=== PATIENT | male | born 1970 | race Caucasian/White ===

== ENCOUNTER 2021-10-11 12:11 | Inpatient (IN) | payer MEDICAID, SELFPAY ==
--- NOTE | ~2021-10-11 | CT_ITS ---
EXAMINATION: CT ABDOMEN AND PELVIS WITHOUT CONTRAST CLINICAL INFORMATION: Diffuse pain COMPARISON: Baseline including 06/24/2012 TECHNIQUE: Multidetector volumetric imaging was performed from the superior aspect of the liver through the pubic symphysis. Sagittal and coronal reformatted images were obtained on the technologist's workstation. This CT examination was performed using dose optimization techniques as appropriate, variously including the following: *Automated exposure control *Adjustment of mA and/or kV according to patient size (this includes techniques or standardized protocols for targeted exams where dose is matched to indication/reason for exam; i.e. extremities or head) *Use of iterative reconstruction technique DLP: 724 mGy-cm FINDINGS: LUNG BASES: The visualized lung bases are unremarkable. LIVER, GALLBLADDER, AND BILIARY TREE: Diffuse hepatic steatosis without any focal lesion. The gallbladder is unremarkable with no evidence of radiopaque gallstones, gallbladder wall thickening, or obvious pericholecystic inflammatory changes. No gross biliary ductal dilatation. PANCREAS: Unremarkable. SPLEEN: Unremarkable. ADRENAL GLANDS: Unremarkable. KIDNEYS AND URETERS: The kidneys are normal in size, shape, and attenuation. No hydronephrosis, hydroureter, or calculi seen. No perinephric stranding. BLADDER: Unremarkable. GASTROINTESTINAL TRACT: Nonspecific mildly prominent small bowel loops throughout the central abdomen. Distal small bowel loops appear relatively decompressed. Bowel loops measure up to 3 cm. Colon is decompressed and unremarkable relative transition zone within the upper pelvis. Appendix normal. ABDOMINAL WALL: No significant hernia is appreciated. LYMPH NODES: Normal. VASCULAR: Unremarkable. PELVIC VISCERA: Unremarkable. OSSEOUS STRUCTURES: Unremarkable. Extensive nonspecific subcutaneous infiltration of the buttock region. Correlate with patient history. Similar appearance is noted on baseline studies. CT/CT abdomen pelvis wo con IMPRESSION: Findings compatible with a partial small bowel obstruction of moderate severity with a transition zone within the mid ileum within the pelvis. Fleischner guidelines were followed.
[2021-10-11 12:20] VITALS: BP 122/72; BP 145/79; PULSE 80; PULSE 82; RESP 18; TEMP 36.9; O2SAT 95; O2SAT 97; BMI 28.4
--- NOTE | 2021-10-11 12:32 | ED.ABDPAIN ---
HPI - Abdominal Pain General Chief Complaint: Abdominal Pain Stated Complaint: abd pain Time Seen by Provider: 10/11/21 12:15 Source: patient Mode of arrival: EMS Limitations: language barrier History of Present Illness HPI narrative: 51-year-old Ethiopian-speaking male who lives in [place] presents today for abdominal pain. Patient states he has had this pain ongoing for the past 4 months, and he has been taking home remedies. He has not seen a provider for this pain. Three days ago the abdominal pain got worse, and is unbearable today. The pain is in the center of his abdomen and his lower abdomen. States he is also having diarrhea and vomiting. States he has had bilateral low back pain as well His last meal was last night. No prior history of abdominal surgeries. No testicular pain, penile discharge, dysuria, hematuria, fevers, chills, chest pain, shortness of breath. No dark, tarry, or bloody stool Patient has a primary care provider in [place], he is here visiting his mother. Past medical history includes fibromyalgia, HIV currently under treatment, hypertension Related Data Home Medications Medication Instructions Recorded Confirmed bictegravir 50 mg-emtricitabine 1 tab PO DAILY 10/11/21 200 mg-tenofovir alafenam 25 mg tablet (Biktarvy) cholecalciferol (vitamin D3) 1,250 1 cap PO QWEEK 10/11/21 mcg (50,000 unit) capsule esomeprazole magnesium 40 mg 1 cap PO DAILY 10/11/21 capsule,delayed release gabapentin 600 mg tablet 1 tab PO DAILY 10/11/21 gemfibrozil 600 mg tablet 1 tab PO BID 10/11/21 lisinopril 2.5 mg tablet 1 tab PO DAILY 10/11/21 Allergies Allergy/AdvReac Type Severity Reaction Status Date / Time No Known Allergies Allergy Unverified 02/01/20 17:21 Review of Systems Constitutional: Denies body ache(s), Denies chills, Denies fatigue, Denies fever(s), Denies headache(s), Denies malaise and Denies weakness Eyes: Denies diplopia Denies vertigo, Denies dizziness, Denies headache(s) and Denies throat swelling Cardiovascular: Denies chest pain, Denies syncope, Denies leg edema, Denies lightheadedness, Denies Loss of Consciousness, Denies palpitations and Denies dyspnea Respiratory: Denies chest congestion, Denies cough and Denies dyspnea Gastrointestinal: Reports abdominal pain, Denies hematochezia, Denies constipation, Reports diarrhea and Reports vomiting Genitourinary: Reports no additional male genitourinary complaints Musculoskeletal: Reports back pain Denies confusion, Denies vertigo, Denies dizziness, Denies syncope, Denies headache(s) and Denies weakness Psychiatric: Denies anxiety, Denies confusion and Denies depression Endocrine: Denies fatigue and Denies palpitations Allergic/Immunologic: Denies throat swelling PMFSH Social History Social History Advance Directives: No Advance Directives Information Provided: No Physical Exam ED Vital Signs: Vital Signs - 24 hr 10/11/21 12:20 Temperature 98.4 F Pulse Rate 82 Respiratory Rate 18 Blood Pressure 145/79 H Pulse Oximetry 95 BMI result Body Mass Index 28.4 Const General: No confusion Nutritional Appearance: well nourished Orientation/consciousness: No confusion Limitations: no limitations HENMT Head: Yes normal to inspection, Yes No palpable skull fracture present, Yes normocephalic and Yes atraumatic Ears: hearing grossly normal bilaterally General nose exam: Normal external nose present Face and sinus: Yes normal facial exam Mouth: Normal oral and palatal mucosa present Throat: Yes posterior oropharynx normal Eyes Conjunctivae: conjunctivae normal Pupils: Equal, round and reactive pupils present EOM: EOMs intact bilaterally Neck Neck: Yes full ROM, Yes no lymphadenopathy and Yes supple Resp Effort & Inspection: normal respiratory effort and able to speak in complete sentences Auscultation: clear to auscultation bilaterally, no crackles, no rales, no rhonchi and no wheezes Cardio Rate: regular rate Rhythm: regular rhythm Heart sounds: S1 normal heart sound present and S2 normal heart sound present GI Inspection: Yes obesity and Yes striae Palpation (GI): Soft to palpation, Tenderness to palpation present (GI) in the epigastrum, in the LLQ, in the RLQ and in the LUQ, Guarding due to palpation present (GI) (mildly diffusely) and not rigid Percussion: Yes tympanic to percussion Auscultation: normal bowel sounds Skin General skin exam: no rashes or lesions noted Neuro General: No confusion Cranial nerves: Yes Equal, round and reactive pupils present Extrem General: Yes normal to inspection and Yes full ROM Psych Appearance: grossly normal Affect: normal affect Attitude: cooperative Thought process: Normal thought process present Course Course Course Narrative: 51-year-old Ethiopian-speaking male with a past medical history of fibromyalgia, HIV, and hypertension presents for 4 months of abdominal pain that has worsened for the last 3 days and is much worse today. States the pain is in his entire abdomen, worse in the center of his abdomen and his lower abdomen. Endorses vomiting and diarrhea. On exam, patient is well appearing, with stable vitals. Abdomen is obese, patient is tender in all quadrants of abdomen, has bilateral low back pain, CVA tenderness bilaterally Will get labs, lipase, urine, will CT abdomen. Gave morphine, Zofran, fluids Reevaluation(s) Reevaluation #1: CT/CT abdomen pelvis wo con IMPRESSION: Findings compatible with a partial small bowel obstruction of moderate severity with a transition zone within the mid ileum within the pelvis. Labs are remarkable for blood glucose 149, total bili 1.2, ALT 41, and lipase is only 26. TT with general surgery, Dr Cruz, who will come by to evaluate patient Reevaluation #2: Dr Coates evaluated patient, and will admit patient to his service MDM - Abdominal Pain Lab Data Result diagrams: 10/11/21 12:59 10/11/21 12:59 Labs: Lab Results 10/11/21 10/11/21 Range/Units 12:59 12:59 WBC 8.6 (4.8-10.8) X10*3/uL RBC 5.48 (4.60-5.80) X10*6/uL Hgb 14.8 (14.0-18.0) g/dl Hct 44.1 (42.0-52.0) % MCV 80.5 (80.0-98.0) fL MCH 27.0 (27.0-33.0) pg MCHC 33.6 (31.0-36.0) g/dl RDW 12.8 (11.0-16.0) % Plt Count 232 (160-400) X10*3/uL MPV 9.4 (9.4-12.4) fL Immature Gran % (Auto) 0.1 (0.0-0.4) % Neut % (Auto) 77.1 H (45-73) % Lymph % (Auto) 15.5 L (20-40) % [place] % (Auto) 5.1 (2-11) % Eos % (Auto) 2.1 (0-4) % Baso % (Auto) 0.1 (0-2) % Lymph # (Auto) 1.3 (1.2-4.9) X10*3/uL [place] # (Auto) 0.4 (0.1-1.2) X10*3/uL Eos # (Auto) 0.2 (0.0-0.4) X10*3/uL Baso # (Auto) 0.0 (0.0-0.2) X10*3/uL Abs Immat Gran (auto) 0.01 (0.00-0.03) X10*3/uL Absolute Neuts (auto) 6.6 (2.0-8.3) x10*3/uL Absolute Nucleated RBC 0.000 (0.0-0.012) X10*3/uL Nucleated RBC % (auto) 0.0 (0.0-0.2) /100WBC Sodium 138 (135-145) mmol/L Potassium 4.2 (3.3-5.1) mmol/L Chloride 105 (96-108) mmol/L Carbon Dioxide 25 (22-29) mmol/L Anion Gap 12 (12-20) BUN 11 (9-16) mg/dL Creatinine 1.14 (0.5-1.4) mg/dL Estim Creat Clear Calc 91.1 Estimated GFR > 60 Random Glucose 149 H (60-115) mg/dL Calcium 9.2 (8.4-10.2) mg/dL Total Bilirubin 1.2 H (0.0-1.0) mg/dL AST 18 (5-37) U/L ALT 41 H (0-40) U/L Alkaline Phosphatase 66 (39-117) U/L Total Protein 6.7 (6.5-8.0) g/dL Albumin 3.8 (3.5-5.0) g/dL Lipase 26 (8-78) U/L ECG Data Interpretation: Sinus at a rate of 75, TX interval 152, QRS 74, QTC is not prolonged at 04:24, left-sided axis, no ST depressions or elevations, no T-wave abnormalities Discharge Plan Discharge Clinical Impression: Partial small bowel obstruction Patient Disposition: Admitted As Inpatient
--- NOTE | 2021-10-11 12:51 | ECG_ITS ---
Test Reason : ABDOMINAL PAIN Blood Pressure : / mmHG Vent. Rate : 075 BPM Atrial Rate : 075 BPM P-R Int : 152 ms QRS Dur : 074 ms QT Int : 380 ms P-R-T Axes : 022 005 016 degrees QTc Int : 424 ms Normal sinus rhythm Normal ECG When compared with ECG of 25-JUN-2012 03:45, No significant changes seen Referred By: Michelle Berger Electronically Signed By:Barak Saavedra
[2021-10-11 13:05] LABS: MANUAL DIFF FLAG NO
[2021-10-11 13:13] LABS: Basophils Percent Auto 0.1 % (0-2); Eosinophils Absolute Auto 0.2 X10*3/uL (0.0-0.4); Eosinophils Percent Auto 2.1 % (0-4); Hematocrit 44.1 % (42.0-52.0); Hemoglobin 14.8 g/dl (14.0-18.0); Imm Gran Abs Auto 0.01 X10*3/uL (0.00-0.03); Imm Gran Pct Auto 0.1 % (0.0-0.4); Lymphocytes Absolute Auto 1.3 X10*3/uL (1.2-4.9); Lymphocytes Percent Auto 15.5 % (20-40); Mean Corpuscular HGB Conc 33.6 g/dl (31.0-36.0); Mean Corpuscular Volume 80.5 fL (80.0-98.0); Mean Platelet Volume 9.4 fL (9.4-12.4); Monocytes Absolute Auto 0.4 X10*3/uL (0.1-1.2); Monocytes Percent Auto 5.1 % (2-11); Neutrophils Absolute Auto 6.6 x10*3/uL (2.0-8.3); Neutrophils Percent Auto 77.1 % (45-73); Platelet Count 232 X10*3/uL (160-400); Red Blood Count 5.48 X10*6/uL (4.60-5.80); Red Cell Distribution Width 12.8 % (11.0-16.0); White Blood Count 8.6 X10*3/uL (4.8-10.8)
[2021-10-11 13:24] LABS: Alanine Aminotransferase 41 U/L (0-40); Albumin Level 3.8 g/dL (3.5-5.0); Alkaline Phosphatase 66 U/L (39-117); Anion Gap 12 (12-20); Aspartate Amino Transferase 18 U/L (5-37); Bilirubin Total 1.2 mg/dL (0.0-1.0); Blood Urea Nitrogen 11 mg/dL (9-16); Calcium 9.2 mg/dL (8.4-10.2); Carbon Dioxide 25 mmol/L (22-29); Chloride 105 mmol/L (96-108); Creatinine Clr Calc Pharmacy 91.1; Estimated Glomerular Filt Rate > 60; Glucose Random 149 mg/dL (60-115); Lipase 26 U/L (8-78); Potassium 4.2 mmol/L (3.3-5.1); Sodium 138 mmol/L (135-145); Total Protein 6.7 g/dL (6.5-8.0)
[2021-10-11] MEDS: 0.9 % Sodium Chloride 1,000 ML 999 ML IV (13:40)
[2021-10-11] MEDS: ondansetron HCL 4 MG/2 ML VIAL IVPUSH (13:40)
[2021-10-11] MEDS: Morphine Sulfate 4 MG/ML CARTRIDGE IVPUSH (13:40)
[2021-10-11 15:05] LABS: COVID-19 Test Negative (Negative); IDNOW Serial# 16C4AD1C
--- NOTE | 2021-10-11 15:07 | P.HPGS_ITS ---
History of Present Illness History of Present Illness Date of Service: 10/17/21 Chief complaint: Abdominal Pain Possible PSBO Narrative: Steffen Franklin is a 51 year old male here in the ED for abdominal pain. He says that he has had abdominal pain for about 4 days now. He says this has persisted and he had nausea and episodes of vomitting last night and this morning. He also says he has had diarrhea for about 5 days. He describes having 5 bowel movements a day which have been watery He continues to have BMs and his last one was last night. He says he has been passing flatus. He denies nay previous abdominal surgeries. He has known HIV for many years. Review of Systems Constitutional: Constitutional: Denies chills and Denies fever(s) Cardiovascular: Cardiovascular: Denies chest pain, Denies dyspnea and Denies dyspnea on exertion Respiratory: Respiratory: Denies cough, Denies dyspnea and Denies dyspnea on exertion Gastrointestinal: Gastrointestinal: Denies hematochezia, Denies change in bowel habits and Reports diarrhea Genitourinary: Genitourinary: Denies hematuria and Denies difficulty urinating Musculoskeletal: Musculoskeletal: Denies back pain and Denies limited range of motion Neurologic: Denies focal weakness and Denies convulsions Psychiatric: Psychiatric: Denies depression and Denies mood swings PMFSH Past Medical History Medical History (Updated 10/11/21 @ 15:11 by Mukund Coates MD) Fibromyalgia GERD (gastroesophageal reflux disease) HIV (human immunodeficiency virus infection) Hyperlipidemia Hypertension Social History Social History Advance Directives Date on File: 10/12/21 service: No Current occupational status: unemployed Meds Allergies Allergy/AdvReac Type Severity Reaction Status Date / Time No Known Allergies Allergy Unverified 02/01/20 17:21 Active Medications: Current Medications Pharmacy Consult (Consult Rx Perform Med Rec) 1 each MISCELLANE ONCE PRN PRN Reason: Consult order Home Medications Medication Instructions Recorded Confirmed Last Taken Type amitriptyline 50 mg tablet 50 mg PO BEDTIME PRN 10/11/21 10/11/21 10/10/21 History bictegravir 50 mg-emtricitabine 1 tab PO DAILY 10/11/21 10/11/21 10/10/21 History 200 mg-tenofovir alafenam 25 mg tablet (Biktarvy) cholecalciferol (vitamin D3) 1,250 1 cap PO MO 10/11/21 10/11/21 Unknown History mcg (50,000 unit) capsule dicyclomine 20 mg tablet 20 mg PO TID 10/11/21 10/11/21 10/10/21 History esomeprazole magnesium 40 mg 1 cap PO DAILY 10/11/21 10/11/21 10/10/21 History capsule,delayed release gabapentin 600 mg tablet 1 tab PO DAILY 10/11/21 10/11/21 10/10/21 History gemfibrozil 600 mg tablet 1 tab PO BID 10/11/21 10/11/21 10/10/21 History lisinopril 2.5 mg tablet 1 tab PO DAILY 10/11/21 10/11/21 10/10/21 History rosuvastatin 10 mg tablet 10 mg PO DAILY 10/11/21 10/11/21 10/10/21 History Physical Exam Vital Signs: Vital Signs: Last Vital Signs Temp 98.4 F 10/11/21 12:20 Pulse 82 10/11/21 12:20 Resp 18 10/11/21 12:20 BP 145/79 H 10/11/21 12:20 Pulse Ox 95 10/11/21 12:20 BMI result Body Mass Index 28.4 Const: General: comfortable and no acute distress Orientation/consciousness: patient oriented x3 Neck: Neck: Yes no lymphadenopathy Resp: Auscultation: clear to auscultation bilaterally Cardio: Rhythm: regular rhythm GI: Other: mild diffuse tenderness, no palpable masses, no hernia, no guarding or rebound Palpation (GI): Soft to palpation and no guarding Neuro: General: patient oriented x3 Results Results Labs: Short CBC 10/11/21 Range/Units 12:59 WBC 8.6 (4.8-10.8) X10*3/uL Hgb 14.8 (14.0-18.0) g/dl Hct 44.1 (42.0-52.0) % Plt Count 232 (160-400) X10*3/uL BMP 10/11/21 12:59 Sodium 138 Potassium 4.2 Chloride 105 Carbon Dioxide 25 BUN 11 Creatinine 1.14 Calcium 9.2 Liver Function 10/11/21 Range/Units 12:59 Total Bilirubin 1.2 H (0.0-1.0) mg/dL AST 18 (5-37) U/L ALT 41 H (0-40) U/L Alkaline Phosphatase 66 (39-117) U/L Albumin 3.8 (3.5-5.0) g/dL Abdomen CT scan report/results: report reviewed and image reviewed CT scan - pelvis: report reviewed and image reviewed Additional studies: Laboratory Results WBC 8.6 X10*3/uL (4.8-10.8) 10/11/21 12:59 RBC 5.48 X10*6/uL (4.60-5.80) 10/11/21 12:59 Hgb 14.8 g/dl (14.0-18.0) 10/11/21 12:59 Hct 44.1 % (42.0-52.0) 10/11/21 12:59 MCV 80.5 fL (80.0-98.0) 10/11/21 12:59 MCH 27.0 pg (27.0-33.0) 10/11/21 12:59 MCHC 33.6 g/dl (31.0-36.0) 10/11/21 12:59 RDW 12.8 % (11.0-16.0) 10/11/21 12:59 Plt Count 232 X10*3/uL (160-400) 10/11/21 12:59 MPV 9.4 fL (9.4-12.4) 10/11/21 12:59 Immature Gran % (Auto) 0.1 % (0.0-0.4) 10/11/21 12:59 Neut % (Auto) 77.1 % (45-73) H 10/11/21 12:59 Lymph % (Auto) 15.5 % (20-40) L 10/11/21 12:59 [place] % (Auto) 5.1 % (2-11) 10/11/21 12:59 Eos % (Auto) 2.1 % (0-4) 10/11/21 12:59 Baso % (Auto) 0.1 % (0-2) 10/11/21 12:59 Lymph # (Auto) 1.3 X10*3/uL (1.2-4.9) 10/11/21 12:59 [place] # (Auto) 0.4 X10*3/uL (0.1-1.2) 10/11/21 12:59 Eos # (Auto) 0.2 X10*3/uL (0.0-0.4) 10/11/21 12:59 Baso # (Auto) 0.0 X10*3/uL (0.0-0.2) 10/11/21 12:59 Abs Immat Gran (auto) 0.01 X10*3/uL (0.00-0.03) 10/11/21 12:59 Absolute Neuts (auto) 6.6 x10*3/uL (2.0-8.3) 10/11/21 12:59 Absolute Nucleated RBC 0.000 X10*3/uL (0.0-0.012) 10/11/21 12:59 Nucleated RBC % (auto) 0.0 /100WBC (0.0-0.2) 10/11/21 12:59 Sodium 138 mmol/L (135-145) 10/11/21 12:59 Potassium 4.2 mmol/L (3.3-5.1) 10/11/21 12:59 Chloride 105 mmol/L (96-108) 10/11/21 12:59 Carbon Dioxide 25 mmol/L (22-29) 10/11/21 12:59 Anion Gap 12 (12-20) 10/11/21 12:59 BUN 11 mg/dL (9-16) 10/11/21 12:59 Creatinine 1.14 mg/dL (0.5-1.4) 10/11/21 12:59 Estim Creat Clear Calc 91.1 10/11/21 12:59 Estimated GFR > 60 10/11/21 12:59 Random Glucose 149 mg/dL (60-115) H 10/11/21 12:59 Calcium 9.2 mg/dL (8.4-10.2) 10/11/21 12:59 Total Bilirubin 1.2 mg/dL (0.0-1.0) H 10/11/21 12:59 AST 18 U/L (5-37) 10/11/21 12:59 ALT 41 U/L (0-40) H 10/11/21 12:59 Alkaline Phosphatase 66 U/L (39-117) 10/11/21 12:59 Total Protein 6.7 g/dL (6.5-8.0) 10/11/21 12:59 Albumin 3.8 g/dL (3.5-5.0) 10/11/21 12:59 Lipase 26 U/L (8-78) 10/11/21 12:59 COVID-19 (JC) Negative (Negative) 10/11/21 14:42 COVID-19 Clin Com See Note 10/11/21 14:42 Impressions Abdomen/Pelvis CT 10/11/21 13:42 IMPRESSION: Findings compatible with a partial small bowel obstruction of moderate severity with a transition zone within the mid ileum within the pelvis. Fleischner guidelines were followed. Assessment and Plan (1) Partial small bowel obstruction: Status: Acute He describes vomitting and diffuse abdominal pain for about 5 days now. He denies any fever. He actually says he also has significant diarrhea. His CT scan shows mildly dilated small bowel proximally with decreased caliber distally in the pelvis suggested of PSBO. He has air in the colon distally. He has had no previous abdominal surger. His exam is actualyl benign. He has associated diarrhea, so enteritis is also a differential. In view of his CT scan findings, I will admit him. He will be kept NPO. He will be hydrated with IVF as he has had diarrhea. His exam is otherwise very benign. We will check his stools for C diff as well. He understands the plan and is comfortable with this. Quality Stroke Does the patient have a stroke diagnosis?: No VTE Prior VTE?: No VTE Risk Level:: Medical - moderate - high VTE Device Contraindication: N/A - Device Ordered VTE Drug Contraindication: N/A - Med Ordered Procedures Date of Service Date of Service: 10/11/21
--- NOTE | 2021-10-11 15:17 | PHA.MEDREC ---
Pharmacy Consult ? Medication Reconciliation Pharmacy has completed the medication reconciliation.
[2021-10-11] MEDS: Lactated Ringers 1,000 ML 125 ML IVCONT ×2 (15:34→23:55)
[2021-10-11 19:26] VITALS: BP 112/73; PULSE 75; RESP 18; TEMP 36.6; O2SAT 98
[2021-10-11] MEDS: Morphine Sulfate 4 MG/ML CARTRIDGE 3 MG IVPUSH (19:33)
--- NOTE | 2021-10-11 20:00 | PC.NURSE ---
Took report from [place] to assume care of Pt, Pt resting, NAD, call light in reach, this RN continues to monitor.
[2021-10-12 01:15] VITALS: BP 123/53; PULSE 83; RESP 17; TEMP 36.6; O2SAT 96
[2021-10-12 07:05] VITALS: BP 107/69; PULSE 75; RESP 18; TEMP 36.4; O2SAT 93
[2021-10-12 07:24] LABS: Hematocrit 38.2 % (42.0-52.0); Hemoglobin 12.5 g/dl (14.0-18.0); Mean Corpuscular HGB Conc 32.7 g/dl (31.0-36.0); Mean Corpuscular Hemoglobin 26.9 pg (27.0-33.0); Mean Corpuscular Volume 82.3 fL (80.0-98.0); Mean Platelet Volume 9.5 fL (9.4-12.4); Platelet Count 191 X10*3/uL (160-400); Red Blood Count 4.64 X10*6/uL (4.60-5.80); Red Cell Distribution Width 12.9 % (11.0-16.0); White Blood Count 5.5 X10*3/uL (4.8-10.8)
[2021-10-12 07:43] LABS: Anion Gap 11 (12-20); Blood Urea Nitrogen 12 mg/dL (9-16); Calcium 8.3 mg/dL (8.4-10.2); Carbon Dioxide 26 mmol/L (22-29); Chloride 107 mmol/L (96-108); Creatinine Clr Calc Pharmacy 85.8; Estimated Glomerular Filt Rate > 60; Glucose Random 87 mg/dL (60-115); Sodium 140 mmol/L (135-145)
--- NOTE | 2021-10-12 09:02 | PC.NURSE ---
pt seen by dr. drew aware of plan of caree
[2021-10-12] MEDS: 0.9 % Sodium Chloride Flush 3 ML SYRINGE IVFLUSH (09:14)
[2021-10-12] MEDS: Gabapentin 600 MG TABLET PO (09:14)
[2021-10-12] MEDS: lisinopriL 2.5 MG TABLET PO (09:14)
[2021-10-12] MEDS: Bictegrav/Emtricit/Tenofov Ala TABLET 1 TAB PO (09:14)
[2021-10-12] MEDS: Lactated Ringers 1,000 ML 125 ML IVCONT ×2 (09:15→17:15)
[2021-10-12] MEDS: Pantoprazole Sodium 40 MG/10 ML VIAL IVPUSH (09:15)
--- NOTE | 2021-10-12 10:07 | PM.PNGS ---
Subjective Subjective Date of Service: 10/12/21 Interval history: says he still has some abdominal pain although better than yesterday diarrhea has resolved is asking for food and wants to go home Physical Exam Vital Signs: Vital Signs: Last Vital Signs Temp 97.6 F 10/12/21 07:05 Pulse 75 10/12/21 07:05 Resp 18 10/12/21 07:05 BP 107/69 10/12/21 07:05 Pulse Ox 93 10/12/21 07:05 BMI result Body Mass Index 28.4 Const: Other: anxious looking General: comfortable and no acute distress Resp: Effort & Inspection: normal respiratory effort Cardio: Rate: regular rate GI: Other: mild tenderness to deep palpation diffusely Inspection: No distended Palpation (GI): Soft to palpation, not firm and no guarding Objective Data Active Medications Amitriptyline HCl (Amitriptyline Hcl 50 Mg Tablet) 50 mg PO BEDTIME PRN PRN Reason: Sleep Bictegravir/Emtricitabine/Tenofovir (Bictegrav/Emtricit/Tenofov Ala Tablet) 1 tab PO DAILY [facility] Last Admin: 10/12/21 09:14 Dose: 1 tab Documented by: LYNNE Gabapentin (Gabapentin 600 Mg Tablet) 600 mg PO DAILY [facility] Last Admin: 10/12/21 09:14 Dose: 600 mg Documented by: LYNNE Lactated Ringer's (Lr) 1,000 mls @ 125 mls/hr IVCONT .Q8H [facility] Last Admin: 10/12/21 09:15 Dose: 125 mls/hr Documented by: LYNNE Lisinopril (Lisinopril 2.5 Mg Tablet) 2.5 mg PO DAILY [facility]; Protocol Last Admin: 10/12/21 09:14 Dose: 2.5 mg Documented by: LYNNE Morphine Sulfate (Morphine Sulfate 4 Mg/Ml Cartridge) 3 mg IVPUSH Q4H PRN; Protocol PRN Reason: Pain, Severe (Pain Scale 7-10) Last Admin: 10/11/21 19:33 Dose: 3 mg Documented by: MALAIKA Ondansetron HCl (Ondansetron Hcl 4 Mg/2 Ml Vial) 4 mg IVPUSH Q8H PRN PRN Reason: nausea Pantoprazole Sodium (Pantoprazole Sodium 40 Mg/10 Ml Vial) 40 mg IVPUSH DAILY [facility] Last Admin: 10/12/21 09:15 Dose: 40 mg Documented by: LYNNE Pharmacy Consult (Consult Rx Perform Med Rec) 1 each MISCELLANE ONCE PRN PRN Reason: Consult order Sodium Chloride (0.9 % Sodium Chloride Flush 3 Ml Syringe) 3 ml IVFLUSH QSHIFT [facility] Last Admin: 10/12/21 09:14 Dose: 3 ml Documented by: LYNNE Labs CBC & Chem 7: 10/12/21 05:45 10/12/21 05:45 Labs: Laboratory Results - last 24 hr 10/11/21 10/11/21 10/11/21 12:59 12:59 14:42 MCV 80.5 MCH 27.0 MCHC 33.6 RDW 12.8 Plt Count 232 MPV 9.4 Immature Gran % (Auto) 0.1 Neut % (Auto) 77.1 H Lymph % (Auto) 15.5 L [place] % (Auto) 5.1 Eos % (Auto) 2.1 Baso % (Auto) 0.1 Lymph # (Auto) 1.3 [place] # (Auto) 0.4 Eos # (Auto) 0.2 Baso # (Auto) 0.0 Abs Immat Gran (auto) 0.01 Absolute Neuts (auto) 6.6 Absolute Nucleated RBC 0.000 Nucleated RBC % (auto) 0.0 Anion Gap 12 Estim Creat Clear Calc 91.1 Estimated GFR > 60 Random Glucose 149 H Calcium 9.2 Total Bilirubin 1.2 H AST 18 ALT 41 H Alkaline Phosphatase 66 Total Protein 6.7 Albumin 3.8 Lipase 26 COVID-19 (JC) Negative COVID-19 Clin Com See Note 10/12/21 10/12/21 05:45 05:45 MCV 82.3 MCH 26.9 L MCHC 32.7 RDW 12.9 Plt Count 191 MPV 9.5 Immature Gran % (Auto) Neut % (Auto) Lymph % (Auto) [place] % (Auto) Eos % (Auto) Baso % (Auto) Lymph # (Auto) [place] # (Auto) Eos # (Auto) Baso # (Auto) Abs Immat Gran (auto) Absolute Neuts (auto) Absolute Nucleated RBC 0.000 Nucleated RBC % (auto) 0.0 Anion Gap 11 L Estim Creat Clear Calc 85.8 Estimated GFR > 60 Random Glucose 87 D Calcium 8.3 L D Total Bilirubin AST ALT Alkaline Phosphatase Total Protein Albumin Lipase COVID-19 (JC) COVID-19 Clin Com Procedures Date of Service Date of Service: 10/12/21 Progress Note: A&P Assessment and plan (1) Partial small bowel obstruction: Status: Acute Assessment and Plan: admitted for CT scan suggestion of partial small-bowel obstruction symptoms also consistent with gastroenteritis abdominal pain better although still mildly tender labs okay exam remains benign try clear liquids plan to re-evaluate later on and see if we can advance diet Time Spent With Patient Time: Total time spent is greater than 50% in coordination of care (as documented) at patient's floor/unit and/or counseling patient: Quality Stroke Does the patient have a stroke diagnosis?: No VTE Prior VTE?: No VTE Risk Level:: Medical - moderate - high VTE Device Contraindication: N/A - Device Ordered VTE Drug Contraindication: N/A - Med Ordered
--- NOTE | 2021-10-12 13:19 | MHC.CM.PN ---
CM MET WITH PT WITH THE ASSISTANCE OF A [facility] CLINICAL DATA RESEARCH PT REPORTS HE LIVES IN [place] AND WAS HERE VISITING HIS MOTHER HE REPORTS HE IS INDEPENDENT WITH CARE, HAS NO DME AND NO SERVICES PT REPORTS HE HAS A PCP IN [place] BUT IS UNABLE TO PROVIDE A NAME OR PRACTICE PT COMPLETES A HCP TODAY NAMING HIS MOTHER, POLINA, HIS SOLE AGENT PT REPORTS BEING COVID VACCINATED X 3 WITH PFIZER CURRENT DC PLAN IS HOME WITH NO SERVICES PT TO ARRANGE TRANSPORT
--- NOTE | 2021-10-12 15:27 | PC.NURSE ---
pt ate/drank 100% of full liquid diet. no n/v noted.
[2021-10-12 16:41] VITALS: BP 139/71; PULSE 66; RESP 16; TEMP 36.5; O2SAT 98
--- NOTE | 2021-10-12 20:21 | PM.EVENT ---
Event Note Date of Service: 10/12/21 Event Note: seen on evening rounds says he has been feeling well all day tolerating liquids well has had no abdominal pain nausea or diarrhea abd soft, nontender, non distended he looks well he says he is already seeing a GI specialist [place] wants to be discharged ok to dc home once tolerating regular food emphasized to him importance of following up with his GI doctor he says he has had chronic GI issues
--- NOTE | 2021-10-13 08:07 | MHC.CM.PN ---
PT TO DC HOME WITH NO SERVICES. PT TO ARRANGE TRANSPORT
--- NOTE | 2021-10-21 14:48 | PM.DS ---
DS: Providers Provider Date of Service: 10/12/21 Date of admission: 10/11/21 15:23 Primary care physician: Unknown Physician DS: Diagnosis Discharge Diagnosis (1) Partial small bowel obstruction: Status: Resolved DS: Summary Hospital Course Hospital Course: 51-year-old male admitted on 10/11/2021 because of abdominal pain, and diarrhea. He had a CAT scan showing dilated small bowel loops suggestive of partial small-bowel obstruction. However, he was passing flatus and overall clinical picture was more suggestive of acute gastroenteritis. Furthermore, he did not have any previous intra-abdominal surgery. He was kept NPO temporarily and was started on clear liquids on 10/12/2021. He tolerated this well. He continued to improve throughout the rest of the day. Diarrhea resolved. His abdominal pain had resolved. He insisted on going home on the evening of 10/12/2021. Was given regular diet which he tolerated. His exam remained benign. He therefore was discharged on the evening of October 12. He says that he already was seeing a GI specialist in [place]. Time Spent with Patient Time attestation: Total time spent providing and/or coordinating discharge services: Discharge coordination time: Less than 30 minutes Quality: Safe Use of Opioids Does Pt have an Active Cancer Diagnosis on the Problem List?: No Quality: Stroke Does the patient have a stroke diagnosis?: No Physical Exam Vital Signs: Vital Signs: Last Vital Signs Temp 97.7 F 10/12/21 16:41 Pulse 66 10/12/21 16:41 Resp 16 10/12/21 16:41 BP 139/71 10/12/21 16:41 Pulse Ox 98 10/12/21 16:41 BMI result Body Mass Index 28.4 Const: General: comfortable and no acute distress Orientation/consciousness: patient oriented x3 Neck: Neck: Yes no lymphadenopathy Resp: Auscultation: clear to auscultation bilaterally Cardio: Rhythm: regular rhythm GI: Palpation (GI): Soft to palpation, nontender and no guarding Neuro: General: patient oriented x3 DS: Data Data Completed and Pending Labs on day of discharge: Laboratory Results WBC 5.5 X10*3/uL (4.8-10.8) 10/12/21 05:45 RBC 4.64 X10*6/uL (4.60-5.80) 10/12/21 05:45 Hgb 12.5 g/dl (14.0-18.0) L 10/12/21 05:45 Hct 38.2 % (42.0-52.0) L 10/12/21 05:45 MCV 82.3 fL (80.0-98.0) 10/12/21 05:45 MCH 26.9 pg (27.0-33.0) L 10/12/21 05:45 MCHC 32.7 g/dl (31.0-36.0) 10/12/21 05:45 RDW 12.9 % (11.0-16.0) 10/12/21 05:45 Plt Count 191 X10*3/uL (160-400) 10/12/21 05:45 MPV 9.5 fL (9.4-12.4) 10/12/21 05:45 Immature Gran % (Auto) 0.1 % (0.0-0.4) 10/11/21 12:59 Neut % (Auto) 77.1 % (45-73) H 10/11/21 12:59 Lymph % (Auto) 15.5 % (20-40) L 10/11/21 12:59 [place] % (Auto) 5.1 % (2-11) 10/11/21 12:59 Eos % (Auto) 2.1 % (0-4) 10/11/21 12:59 Baso % (Auto) 0.1 % (0-2) 10/11/21 12:59 Lymph # (Auto) 1.3 X10*3/uL (1.2-4.9) 10/11/21 12:59 [place] # (Auto) 0.4 X10*3/uL (0.1-1.2) 10/11/21 12:59 Eos # (Auto) 0.2 X10*3/uL (0.0-0.4) 10/11/21 12:59 Baso # (Auto) 0.0 X10*3/uL (0.0-0.2) 10/11/21 12:59 Abs Immat Gran (auto) 0.01 X10*3/uL (0.00-0.03) 10/11/21 12:59 Absolute Neuts (auto) 6.6 x10*3/uL (2.0-8.3) 10/11/21 12:59 Absolute Nucleated RBC 0.000 X10*3/uL (0.0-0.012) 10/12/21 05:45 Nucleated RBC % (auto) 0.0 /100WBC (0.0-0.2) 10/12/21 05:45 Sodium 140 mmol/L (135-145) 10/12/21 05:45 Potassium 4.0 mmol/L (3.3-5.1) 10/12/21 05:45 Chloride 107 mmol/L (96-108) 10/12/21 05:45 Carbon Dioxide 26 mmol/L (22-29) 10/12/21 05:45 Anion Gap 11 (12-20) L 10/12/21 05:45 BUN 12 mg/dL (9-16) 10/12/21 05:45 Creatinine 1.21 mg/dL (0.5-1.4) 10/12/21 05:45 Estim Creat Clear Calc 85.8 10/12/21 05:45 Estimated GFR > 60 10/12/21 05:45 Random Glucose 87 mg/dL (60-115) D 10/12/21 05:45 Calcium 8.3 mg/dL (8.4-10.2) L D 10/12/21 05:45 Total Bilirubin 1.2 mg/dL (0.0-1.0) H 10/11/21 12:59 AST 18 U/L (5-37) 10/11/21 12:59 ALT 41 U/L (0-40) H 10/11/21 12:59 Alkaline Phosphatase 66 U/L (39-117) 10/11/21 12:59 Total Protein 6.7 g/dL (6.5-8.0) 10/11/21 12:59 Albumin 3.8 g/dL (3.5-5.0) 10/11/21 12:59 Lipase 26 U/L (8-78) 10/11/21 12:59 COVID-19 (JC) Negative (Negative) 10/11/21 14:42 COVID-19 Clin Com See Note 10/11/21 14:42 Impressions Abdomen/Pelvis CT 10/11/21 13:42 IMPRESSION: Findings compatible with a partial small bowel obstruction of moderate severity with a transition zone within the mid ileum within the pelvis. Fleischner guidelines were followed. Discharge Plan Discharge Patient Disposition: Home, Self-Care Discharge Diagnosis: partial small bowel obstruction versus gastroenteritis Referrals: Physician,Unknown J [Primary Care Provider] - 1 Week Discharge Medications: Continued gabapentin 600 mg tablet 1 tab PO DAILY 0RF gemfibrozil 600 mg tablet 1 tab PO BID 0RF esomeprazole magnesium 40 mg capsule,delayed release(DR/EC) 1 cap PO DAILY 0RF lisinopril 2.5 mg tablet 1 tab PO DAILY 0RF cholecalciferol (vitamin D3) 1,250 mcg (50,000 unit) capsule 1 cap PO MO 0RF Biktarvy 50-200-25 mg tablet 1 tab PO DAILY 0RF amitriptyline 50 mg Tablet 50 mg PO BEDTIME PRN (Reason: Sleep) 0RF dicyclomine 20 mg Tablet 20 mg PO TID 0RF rosuvastatin 10 mg Tablet 10 mg PO DAILY 0RF Discharge Orders: Discharge Order (Routine); Ordered 10/12/21 Ordered By: Mukund Coates Diet: advance to usual diet Activity on Discharge: As tolerated Stand Alone Forms: Patient Portal Discharge page Care Plan Goals: diet as tolerated ffup with PCP he is to followup with his GI doc Health Concerns: has HIV chronic GI complaints Plan of Treatment: monitor abdomen ffup with PCP Assessment: doing much better Discharge Date/Time: 10/13/21 14:12
== END 2021-10-13 14:12 | disposition home or self-care (01) | DRG 249 ==
LOC: HO.ED 14:29 → HO.EDOVER 15:38
PROVIDERS: Physician Assistant; Admitting Provider Surgery; Emergency Provider Emergency Medicine; Visit Provider Surgery
DX: K52.9 Noninfective gastroenteritis and colitis, unspecified (principal); E78.5 Hyperlipidemia, unspecified; M79.7 Fibromyalgia; K21.9 Gastro-esophageal reflux disease without esophagitis; Z21 Asymptomatic human immunodeficiency virus [HIV] infection status; I10 Essential (primary) hypertension; Z20.822 Contact with and (suspected) exposure to COVID-19; Z79.899 Other long term (current) drug therapy
CPT/HCPCS: 36415; 74176; 80048; 80053; 83690; 85025; 85027; 87635; 93005; 96361; 96374; 96375; 99285; J2270; J2405

== ENCOUNTER 2021-11-10 15:05 | Emergency (ER) | payer MEDICAID, SELFPAY ==
--- NOTE | ~2021-11-10 | XR_ITS ---
EXAMINATION: XR CHEST CLINICAL INFORMATION: Productive cough COMPARISON: 05/27/2018 TECHNIQUE: 2 views of the chest were obtained. FINDINGS: No significant abnormality is noted involving the heart, lungs, mediastinum, bony thorax or soft tissues. XR/XR chest 2V IMPRESSION: Unremarkable examination.
[2021-11-10 16:39] VITALS: BP 112/77; PULSE 93; RESP 18; TEMP 36.4; O2SAT 97; BMI 26.6
[2021-11-10 18:00] LABS: Influenza A PCR NEGATIVE (Negative); Influenza B PCR NEGATIVE (Negative); Resp Syncy Virus RNA Qual PCR NEGATIVE (Negative); SARS COV2 PCR INHOUSE NEGATIVE (Negative)
--- NOTE | 2021-11-10 19:56 | ED.URI ---
HPI - URI/Sore Throat General Chief Complaint: Upper Respiratory Symptoms Stated Complaint: headaches/fever/flu like symptoms Time Seen by Provider: 11/10/21 18:30 Source: patient and grazing examiner Mode of arrival: ambulatory Limitations: no limitations History of Present Illness HPI Narrative: 51-year-old male came in for evaluation of upper respiratory symptoms. Patient been having productive cough with clear phlegm, runny nose, sneezing. No fever, no chills, no sick contacts. Related Data Home Medications Medication Instructions Recorded Confirmed amitriptyline 50 mg tablet 50 mg PO BEDTIME PRN Sleep 10/11/21 10/11/21 bictegravir 50 mg-emtricitabine 1 tab PO DAILY 10/11/21 10/11/21 200 mg-tenofovir alafenam 25 mg tablet (Biktarvy) cholecalciferol (vitamin D3) 1,250 1 cap PO MO 10/11/21 10/11/21 mcg (50,000 unit) capsule dicyclomine 20 mg tablet 20 mg PO TID 10/11/21 10/11/21 esomeprazole magnesium 40 mg 1 cap PO DAILY 10/11/21 10/11/21 capsule,delayed release gabapentin 600 mg tablet 1 tab PO DAILY 10/11/21 10/11/21 gemfibrozil 600 mg tablet 1 tab PO BID cholesterol 10/11/21 10/11/21 lisinopril 2.5 mg tablet 1 tab PO DAILY 10/11/21 10/11/21 rosuvastatin 10 mg tablet 10 mg PO DAILY 10/11/21 10/11/21 Allergies Allergy/AdvReac Type Severity Reaction Status Date / Time No Known Allergies Allergy Verified 11/10/21 16:43 Review of Systems Review of Systems: All other systems are reviewed and are negative Constitutional: Reports as per HPI and Reports no additional constitutional complaints Eyes: Reports as per HPI and Reports no additional eye complaints Reports system reviewed and no additional complaints, except as documented Cardiovascular: Reports as per HPI and Reports no additional cardiovascular complaints Respiratory: Reports as per HPI and Reports no additional respiratory complaints Gastrointestinal: Reports as per HPI and Reports no additional gastrointestinal complaints Genitourinary: Reports no additional female genitourinary complaints Musculoskeletal: Reports no additional musculoskeletal complaints Skin/Breast: Reports system reviewed and no additional complaints, except as docu Psychiatric: Reports no additional psychiatric complaints Endocrine: Reports no additional endocrine complaints Hematologic/Lymphatic: Reports no additional hematologic/lymphatic complaints Allergic/Immunologic: Reports no additional allergic/immunologic complaints Reports system reviewed and no additional complaints, except as documented and Reports Abnormal speech present [facility] Social History Social History Advance Directives: Yes Advance Directives on File: Yes Advance Directives Date on File: 10/12/21 service: No Current occupational status: unemployed Physical Exam Vital Signs: Vital Signs: Last Vital Signs Temp 97.6 F 11/10/21 16:39 Pulse 93 11/10/21 16:39 Resp 18 11/10/21 16:39 BP 112/77 11/10/21 16:39 Pulse Ox 97 11/10/21 16:39 O2 Del Method 11/10/21 16:39 BMI result Body Mass Index 26.6 Vital signs have been reviewed as appeared to be correct. Blood pressure normal. Heart rate normal. Respiration rate normal. Temperature normal. Oxygen saturation normal. Appearance: Alert. Oriented X3. No acute distress. Head: Normal external exam. Normocephalic. Atraumatic. No Arnold signs noted. No raccoon eyes noted Eyes: PERRLA. EOMI. Conjunctiva and sclera normal. Eyelids normal. ENT: TM's Normal. Pharynx normal. Uvula midline. Moist mucous membranes. No trismus noted. No drooling noted. No muffled voice noted. Neck: Normal inspection. Neck supple. FROM. No adenopathy. Thyroid Normal. No meningeal signs. No neck mass noted. CVS: Normal heart rate and rhythm. Heart sound normal. No murmurs noted. Pulses normal throughout. Respiratory: No respiratory distress. Painless inspiration. Breath sounds normal. No wheezes/rales/rhonchi noted. Chest nontender. No accessory muscle usage noted or decreased air movement noted. Abdomen: Soft and nontender. Bowel sounds normal in all 4 quadrants. No distention noted. No organomegaly noted. No visible injury noted. Back: No CVA tenderness. Full range of motion noted. Skin: Skin warm and dry. Normal skin color. Normal skin turgor. No rashes/lesions/lacerations noted. Extremities: No lower extremity edema. Extremities exhibit normal range of motion. Extremities nontender. Neuro: Oriented X 3. Cranial nerve exam: II-XII are grossly intact No motor deficit. No sensory deficit. Reflexes normal. Course Course Course Narrative: Upper respiratory symptoms patient is negative for COVID/influenza/RSV. Unremarkable chest x-ray, patient appear well, will discharge the patient to follow-up with PCP. MDM - URI/Sore Throat Lab Data Attestation: I reviewed the patient's lab results. Labs: Lab Results 11/10/21 Range/Units 16:49 Influenza Type A (PCR) NEGATIVE (Negative) Influenza Type B (PCR) NEGATIVE (Negative) RSV RNA Qual (PCR) NEGATIVE (Negative) SARS-CoV-2 RNA (RT-PCR) NEGATIVE (Negative) Imaging Data Chest x-ray: Attestation: I personally reviewed and interpreted this imaging study as follows: Radiologist's impression: Unremarkable examination Discharge Plan Discharge Clinical Impression: Upper respiratory infection, Acute viral syndrome Patient Disposition: Home, Self-Care Instructions: Viral Syndrome (ED) Additional Instructions: You are negative for COVID testing today. Prescriptions: No Action gabapentin 600 mg tablet 1 tab PO DAILY gemfibrozil 600 mg tablet 1 tab PO BID esomeprazole magnesium 40 mg capsule,delayed release(DR/EC) 1 cap PO DAILY lisinopril 2.5 mg tablet 1 tab PO DAILY cholecalciferol (vitamin D3) 1,250 mcg (50,000 unit) capsule 1 cap PO MO Biktarvy 50-200-25 mg tablet 1 tab PO DAILY amitriptyline 50 mg Tablet 50 mg PO BEDTIME PRN (Reason: Sleep) dicyclomine 20 mg Tablet 20 mg PO TID rosuvastatin 10 mg Tablet 10 mg PO DAILY Referrals: Physician,Unknown J [Primary Care Provider] -
== END 2021-11-10 20:53 | disposition home or self-care (01) ==
PROVIDERS: Emergency Provider Emergency Medicine
DX: J06.9 Acute upper respiratory infection, unspecified (principal); B34.9 Viral infection, unspecified; R51.9 Headache, unspecified; R50.9 Fever, unspecified; Z20.822 Contact with and (suspected) exposure to COVID-19; Z79.899 Other long term (current) drug therapy
CPT/HCPCS: 0241U; 71046; 99283